=== PATIENT | male | born 1945 | race Caucasian/White ===

== ENCOUNTER 2016-08-19 13:34 | Outpatient (CLI) | payer OTHER ==
[2014-01-07 21:27] VITALS: BP 149/78
[2016-08-19 13:53] LABS: BASOPHILS % 0.9 (0.0-1.5); EOSINOPHILS % 2.6 % (0.0-6.8); LYMPHOCYTES # 1.6 # k/uL (0.6-4.0); MEAN CORPUSCULAR HEMOGLOBIN 31.5 pg (28.0-34.0); MONOCYTES # 0.2 # k/uL (0.0-0.9); MONOCYTES % 3.8 % (0.0-11.0); NEUTROPHILS # 3.2 # k/uL (1.4-7.7)
--- NOTE | 2016-08-19 18:35 | Diagnostic Imaging Report ---
[facility] [address] [facility].[address] [id number] Report Submission Date: Aug 19, 2016 2:40:02 PM CDT Patient Study Name: JOSEPH STEPHENS Date: Aug 19, 2016 1:59:38 PM CDT Modality Type: CR Gender: M Description: LOWER EXTREMITY : 47 Institution: [facility] Physician LUIS BROWN Left foot -three views CLINICAL HISTORY: Pain and swelling. FINDINGS: Examination left foot in plantar, lateral and oblique views demonstrates remote postoperative changes in the distal tibia. Small calcaneal spurs are seen on the lateral view. There is extension at the metatarsophalangeal joints. There is no evident fracture and no lytic or blastic lesion. IMPRESSION: Degenerative changes. Remote postoperative changes in the distal tibia. Extension at the metatarsophalangeal joints. Electronically signed on Aug 19, 2016 2:40:02 PM CDT by: Herb WATSON
--- NOTE | 2016-08-19 18:36 | Diagnostic Imaging Report ---
[facility] [address] [facility].[address] [id number] Report Submission Date: Aug 19, 2016 2:47:07 PM CDT Patient Study Name: JOSEPH STEPHENS Date: Aug 19, 2016 2:06:44 PM CDT Modality Type: CR Gender: M Description: LOWER EXTREMITY : 47 Institution: [facility] Physician LUIS BROWN Left ankle-three views CLINICAL HISTORY: Pain for 1 week. Swelling. FINDINGS: Examination of the left ankle in AP, lateral oblique views demonstrates remote postoperative changes with a metallic screw extending through the medial malleolus into the distal tibial shaft. The ankle mortise is anatomic. There is a small ossicle adjacent to the medial malleolus. There is no evidence of acute fracture or dislocation. Calcaneal spurs are seen on the lateral view. IMPRESSION: Degenerative and remote posttraumatic changes. Electronically signed on Aug 19, 2016 2:47:07 PM CDT by: Herb WATSON
== END 2016-08-19 13:35 ==
LOC: LAB 13:34
PROVIDERS: ATTEND Physician Assistant
DX: M79.672 Pain in left foot (principal); E11.8 Type 2 diabetes mellitus with unspecified complications; M79.89 Other specified soft tissue disorders; M25.572 Pain in left ankle and joints of left foot
CPT/HCPCS: 36415; 73610; 73630; 83036; 85025; 85651

== ENCOUNTER 2017-03-07 14:15 | Outpatient (CLI) | payer OTHER ==
[2014-01-07 21:27] VITALS: BP 149/78
== END 2017-03-07 14:16 ==
LOC: POD 14:15
PROVIDERS: ATTEND Podiatrist
DX: E11.42 Type 2 diabetes mellitus with diabetic polyneuropathy (principal); B35.1 Tinea unguium
CPT/HCPCS: G0463

== ENCOUNTER 2017-06-27 14:05 | Outpatient (CLI) | payer OTHER ==
[2014-01-07 21:27] VITALS: BP 149/78
== END 2017-06-27 14:06 ==
LOC: POD 14:05
PROVIDERS: ATTEND Podiatrist
DX: B35.1 Tinea unguium (principal); M79.674 Pain in right toe(s); M79.675 Pain in left toe(s)
CPT/HCPCS: 11721; G0463

== ENCOUNTER 2017-09-19 13:09 | Outpatient (CLI) | payer OTHER ==
[2014-01-07 21:27] VITALS: BP 149/78
== END 2017-09-19 13:10 ==
LOC: POD 13:09
PROVIDERS: ATTEND Podiatrist
DX: B35.1 Tinea unguium (principal); M79.674 Pain in right toe(s); M79.675 Pain in left toe(s)
CPT/HCPCS: 11721; G0463

== ENCOUNTER 2017-12-29 13:02 | Outpatient (CLI) | payer OTHER ==
[2014-01-07 21:27] VITALS: BP 149/78
== END 2017-12-29 13:03 ==
LOC: POD 13:02
PROVIDERS: ATTEND Podiatrist
DX: B35.1 Tinea unguium (principal); M79.674 Pain in right toe(s); M79.675 Pain in left toe(s)
CPT/HCPCS: 11721; G0463

== ENCOUNTER 2018-05-02 13:17 | Outpatient (CLI) | payer OTHER ==
[2014-01-07 21:27] VITALS: BP 149/78
--- NOTE | 2018-05-16 10:12 | OP Clinic Progress Note ---
SUBJECTIVE: Yariel Mena is a 72-year-old male who presented today for nail care. The patient states that he is pre-diabetic and has peripheral neuropathy. He is unable to cut his toenails himself. The patient does not admit to any other fevers, chills, nausea, vomiting, shortness of breath, or chest pain. 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 He has pain under his 5th metatarsal head he states that is a problem as well. OBJECTIVE: VITAL SIGNS: T: 98.2 degrees Fahrenheit, R: 18, BP: 137/80, oxygen saturation is 94% on room air. VASCULAR: DP and PT pulses are 2+ bilaterally. Capillary refill time is less than 3 seconds to the toes bilaterally. There is no edema bilaterally. DERMATOLOGIC: There is mild thin hyperkeratosis noted of the sub 5th metatarsal head of the left foot. There are no other hyperkeratosis or erythema or ecchymosis noted. It is noted that the patient states that his left 4th toenail removed on its own a icht-bug-d-half ago but it appears that there is a nearly fully grown nail in place that probably pushed the old nail off. There is no erythema, open wound, or drainage at this time there. MUSCULOSKELETAL: There is a notable claw toe deformity of the 2nd through 5th toes bilaterally, as well as hallux malleus and plantar flexion at the IPJ of the hallux bilaterally. There is mild dorsiflexion deformity at the 1st metatarsophalangeal joint bilaterally as well with the forefoot loaded. There is a high arch noted bilaterally. There are no other gross abnormalities noted. NEUROLOGIC: Light touch sensation is absent beginning distal to the mid-foot bilaterally. ASSESSMENT: 1. Dermatophytosis. 2. Peripheral neuropathy. 3. Hammertoes of both feet. 4. Hallux malleus bilaterally. 5. Hyperkeratosis of the left foot. Nails were trimmed bilaterally without incident. Conservative versus surgical treatment was discussed with the patient for the hammertoes bilaterally. We discussed that the patient would be in a boot and non-weightbearing for at least a week and then weightbearing in a boot for 4 to 6 weeks after that. The patient would like to consider conservative treatment at this time, I believe, and we will consider surgical stuff later on if other things are not helping at this time. The patient was encouraged to come into the office at the health clinic and obtain some inserts from us over there with a 5th metatarsal head cut out for the left foot. The patient will do so upon looking at his schedule. We will consider getting the patient some information for pads from [employer], I believe, it is called in order to help pull down the hammertoes on his feet. We will consider that at the next visit. PLAN: Return to clinic in 3 months and we will trim nails and check feet again over at the [facility] and do as mentioned above. cc: Dr. Rachel WATSON
== END 2018-05-02 13:18 ==
LOC: POD 13:17
PROVIDERS: ATTEND Podiatrist Foot & Ankle Surgery
DX: L60.8 Other nail disorders (principal); B35.9 Dermatophytosis, unspecified; R20.8 Other disturbances of skin sensation; M20.42 Other hammer toe(s) (acquired), left foot; M20.41 Other hammer toe(s) (acquired), right foot; L84 Corns and callosities
CPT/HCPCS: 11719; G0463

== ENCOUNTER 2018-11-05 11:00 | Outpatient (CLI) | payer OTHER ==
[2014-01-07 21:27] VITALS: BP 149/78
[2018-11-14 12:11] LABS: eGFR (Non-African) > 60
== END 2018-11-05 11:05 | disposition home or self-care (01) ==
LOC: LAB 11:00
PROVIDERS: ATTEND Family Medicine
DX: N40.0 Benign prostatic hyperplasia without lower urinary tract symptoms (principal); N39.0 Urinary tract infection, site not specified; I63.9 Cerebral infarction, unspecified
CPT/HCPCS: 36415; 80048

== ENCOUNTER → 2018-11-10 | Emergency (ER) | payer OTHER ==
[2014-01-07 21:27] VITALS: BP 149/78
== END ==
LOC: ED 15:42
DX: Z46.6 Encounter for fitting and adjustment of urinary device (principal)
CPT/HCPCS: 51702; 99282; 99283